=== PATIENT | female | born 1975 | race Hispanic/Latino ===

== ENCOUNTER 2021-01-02 07:42 | Emergency (ER) | payer MEDICAID | END 2021-01-02 10:12 | disposition home or self-care (01) | LOC: EDH 07:42 | DX: T16.2XXA Foreign body in left ear, initial encounter (principal); X58.XXXA Exposure to other specified factors, initial encounter; Y93.89 Activity, other specified; Y92.89 Other specified places as the place of occurrence of the external cause; Y99.8 Other external cause status | CPT/HCPCS: 69200 ==

== ENCOUNTER 2025-04-30 19:15 | Emergency (ER) | payer MEDICAID ==
[~2025-04-30] VITALS: Ht 165.1 cm; Wt 63.5 kg
[2025-04-30 19:16] VITALS: TEMP 98.5
[2025-04-30] MEDS ORDERED: AMOX1TAB16 PO (20:00)
[2025-04-30] MEDS ORDERED: IBUP-2070 PO (20:00)
--- NOTE | 2025-04-30 20:02 | ERN ---
ED Note History of Present Illness Stated Complaint: TOOTH PAIN Chief Complaint: Tooth Ache/Pain Time Seen by MD: 19:16 Time Seen by Midlevel: 19:19 Dictation: The patient is a 49-year-old with no past medical history who presents to the em ergency department with a right upper molar pain that started on today. Patient denies any fevers. Reports she has not gone to a dentist. Allergies: Coded Allergies: No Known Allergies (Unverified Allergy, Unknown, 01/04/21) Home Meds Active Scripts Ibuprofen (Ibuprofen) 600 Mg Tablet, 600 MG PO Q6H PRN for PAIN, #15 TAB Prov:ADITHYA OCAMPO [facility] 04/30/25 Amoxicillin/Potassium Clav (Amox Tr-K Clv 875-125 mg Tab) 875 Mg-125 Mg Tablet, 1 EACH PO BID for 14 Days, #28 TAB 0 Refills Prov:ADITHYA OCAMPO [facility] 04/30/25 Past Medical History Past Medical History: No Pertinent History Surgical History: None RN Note Reviewed/Agreed w/PFSH: Yes Review of System Dictation Constitutional: Negative for fever,chills, and weight loss Eyes: Negative for injury, pain,redness, and discharge ENT: Negative for injury,pain or swelling positive for right upper teeth pain Cardiovascular: Negative for chest pain, palpitations, and edema Respiratory: Negative for shortness of breath, cough, and wheezing, Abdomen/GI: Negative for abdominal pain, nausea, vomiting, diarrhea, and constipation Back: Negative for injury and pain : Negative for injury, bleeding and discharge MS/Extremity: Negative for injury and deformity Skin: Negative for rash, and discoloration Neuro: Negative for headache, weakness, numbness, tingling, and seizure Psych: Negative for suicide ideation, homicidal ideation, and hallucinations Initial Vital Sign VS Vital Signs Date Time Temp Pulse Resp B/P (MAP) Pulse Ox O2 Delivery O2 Flow Rate FiO2 04/30/25 19:16 98.4 74 18 115/54 98 04/30/25 20:03 Room Air* 0 21 Physical Exam Dictation Vital Signs reviewed General Appearance: Alert, oriented x 3, no acute distress, well developed, nourished. Head and Face: non-traumatic. Eyes: PERRL, pink conjunctivas, eyelid no trauma, anterior chamber with arcus senilis. Ears: Pinnas intact and no signs of trauma or erythema ear canals clear and no discharge TM no erythema Nose: No discharge, no bleeding. Oropharynx: Mouth normal, tongue pink., left cheek with mild swelling pharynx clear,no erythema, tonsils no exudates, no abscesses noted, mucous membrane moist , tooth decay noted to right upper molar, no drainage Neck: Supple, non-tender, no thyromegaly, no masses, no JVD, no bruits Breast:Deferred Chest:No tenderness, no crepitus, no paradoxical movement, no retractions Lungs:Clear, well-ventilated, symmetric, no rales, no wheezing, no rhonchi, no stridor, good breath sounds bilaterally Heart: Regular rate, regular rhythm, no murmur, no gallops Vascular: no peripheral edema, Abdomen: Soft, positive bowel sounds, nondistended, no guarding, nontender, no rebound, no masses no hepatomegaly, no splenomegaly, no Rai's sign, no hernias. Rectal: Deferred Genital: Deferred Neurological: Normal speech, motor function intact, sensory function intact Musculoskeletal: Neck nontender, full range of motion, back nontender, full range of motion, Extremities: nontender, full range of motion Skin: Color pink, dry, no turgor, no rash, no lacerations, no abrasions, no contusions. Lymphatic: Deferred Results (Laboratory/Radiology) Labs Reviewed?: Yes ED Course ED Course Orders Procedure Category Date Status Time Hydrocodone/Apap PHA 04/30/25 Complete 5/325 (Doole 5/325mg) 20:00 Amox/Clav 875/125mg PHA 04/30/25 Complete Tab (Augmentin 875-1 20:00 Current Medications Medications (Trade) Dose Ordered Sig/Jennifer Route PRN Reason Start Time Stop Time Status Last Admin Dose Admin Acetaminophen/ Hydrocodone Bitart (NORco 5/325MG) 1 tab ONCE ONCE PO 04/30/25 20:00 04/30/25 20:01 DC 04/30/25 20:17 Amoxicillin/ Clavulanate Potassium (Augmentin 875-125 Tablet) 1 each ONCE ONCE PO 04/30/25 20:00 04/30/25 20:01 DC 04/30/25 20:17 Vital Signs Date Time Temp Pulse Resp B/P (MAP) Pulse Ox O2 Delivery O2 Flow Rate FiO2 04/30/25 20:03 69 14 113/63 100 Room Air* 0 21 04/30/25 19:16 98.4 74 18 115/54 98 Medical Decision Making MDM The patient is a 49-year-old with no past medical history who presents to the emergency department with a right upper molar pain that started on today. Patient denies any fevers. Reports she has not gone to a dentist. patient's with multiple missing teeth, tooth decay noted to right upper molar, mild swelling. Airways intact. On physical exam patient is in no acute distress. Nontoxic appearance. Patient instructed to follow up with dentist in two take medications as prescribed. Differential diagnosis: Toothache, tooth decay, tooth abscess Need for hospitalization: Patient does not meet criteria for hospitalization. There are no social concerns with this patient. DX & DISP Disposition: Discharge Departure Impression: Primary Impression: Tooth decayed Condition: Stable Scripts Ibuprofen (Ibuprofen) 600 Mg Tablet 600 MG PO Q6H PRN for PAIN, #15 TAB Prov: ADITHYA OCAMPO 04/30/25 Amoxicillin/Potassium Clav (Amox Tr-K Clv 875-125 mg Tab) 875 Mg-125 Mg Tablet 1 EACH PO BID for 14 Days, #28 TAB 0 Refills Prov: ADITHYA OCAMPO 04/30/25 Additional Instructions: Please go with your dentist, Take your antibiotics as prescribed and until finish. IF symptoms worsen please return to ER. FOLLOW-UP WITH PRIMARY CARE PROVIDER IN 1 TO 2 DAYS. TAKE MEDICATIONS DIRECTED HERE IN THE EMERGENCY ROOM. OKAY TO CONTINUE HOME MEDICATIONS UNLESS OTHERWISE DISCUSSED DURING YOUR VISIT IN THE EMERGENCY ROOM TODAY. RETURN TO YOUR NEAREST EMERGENCY ROOM IF SYMPTOMS WORSEN OR IF THERE IS NO IMPROVEMENT. CALL 911 IF YOU NEED IMMEDIATE ASSISTANCE. TAKE TYLENOL [id number] NEEDED AND IF NO CONTRAINDICATIONS ARE PRESENT. INCREASE ORAL HYDRATION. A WOUND CULTURE OR URINE CULTURE WAS ORDERED HERE IN THE EMERGENCY ROOM DEPARTMENT PLEASE FOLLOW-UP WITH PRIMARY CARE PROVIDER AND ADVISE THEM TO GET REPEAT PORTS FROM OUR FACILITY. IF YOU HAD ANY [place] WRAP/SPLINTS THAT WERE APPLIED HERE, PLEASE DO NOT REMOVE THEM UNTIL YOU SEE YOUR PRIMARY CARE OR SPECIALTY. Referrals: SELF,REFERRAL (PCP) Time of Disposition: 20:01 I have reviewed the case, and I agree with, Diagnosis and Plan ADITHYA OCAMPO Apr 30, 2025 20:01
[2025-04-30 20:03] VITALS: BP 113/63; PULSE 69; RESP 14; O2SAT 100
[2025-04-30] MEDS: HYDROcodone/APAP 5/325 1 TAB TABLET PO ONE (20:17)
[2025-04-30] MEDS: AMOX/CLAV 875/125MG TAB PO ONE (20:17)
== END 2025-04-30 20:41 | disposition home or self-care (01) ==
LOC: EDH 19:15
DX: K02.9 Dental caries, unspecified (principal)
CPT/HCPCS: 99283